=== PATIENT | female | born 1970 | race Caucasian/White ===

== ENCOUNTER → 2017-09-11 | Outpatient (CLI) | payer BC ==
[~2017-09-11] MED LIST: APRITAB; BACT800T5 PO; CARV25TA PO; CORE25TA PO; COZA50TA PO; FOLI800T PO; IBUP-232 PO; LOSA50TA PO; OXYC1TAB63 PO
== END ==
LOC: CPRE 10:23
PROVIDERS: ATTEND Obstetrics & Gynecology
DX: Z01.812 Encounter for preprocedural laboratory examination (principal)

== ENCOUNTER 2017-09-19 06:13 | Observation (INO) | payer BC ==
[~2017-09-19] VITALS: Ht 165.1 cm; Wt 78.2 kg
[~2017-09-19 06:13] MED LIST changes: -APRITAB; -BACT800T5 PO; -CORE25TA PO; -COZA50TA PO; -IBUP-232 PO; -OXYC1TAB63 PO
[2017-09-19] MEDS ORDERED: ACETAMINOPHEN 1000 MG/100 ML 100 ML IV ONE (06:42)
[2017-09-19] MEDS ORDERED: NALOXONE HCL 0.4 MG/ML AMP ONE (06:43)
[2017-09-19] MEDS ORDERED: SUGAMMADEX SODIUM 200 MG/2 ML VIAL IV PUSH ONE (06:43)
[2017-09-19] MEDS ORDERED: HYDROmorphone HCL PF 2 MG/ML VIAL ONE (06:43)
[2017-09-19] MEDS ORDERED: CHLORHEXIDINE GLUCONATE 2 % 1 PACK (2 CLOTHS) TOPICAL PRN (06:45)
[2017-09-19] MEDS ORDERED: ceFAZolin 2 GM PREMIX 50 ML IV SCH (06:45)
[2017-09-19] MEDS ORDERED: METOPROLOL TARTRATE 25 MG TAB PO PRN (06:45)
[2017-09-19] MEDS ORDERED: LACTATED RINGER'S 1000 ML IV PRN (06:45)
[2017-09-19] MEDS ORDERED: POVIDONE IODINE 5% (ANTISEPSIS KIT) 4 APPLICATIONS EACH NARE PRN (06:45)
[2017-09-19] MEDS ORDERED: SODIUM CHLORID 0.9% 500 ML IV PRN (06:45)
[2017-09-19] MEDS ORDERED: BUPIVACAINE/EPINEPHRINE 0.25% 50 ML VIAL ONE (06:51)
[2017-09-19] MEDS ORDERED: ESTROGENS CONJUGATED VAG CREA 15 APPL/30 GM TUBE ONE (06:52)
[2017-09-19] MEDS ORDERED: MICROFIBRILLAR COLLAGEN HEMOSTAT 1 GM PKT ONE (08:34)
[2017-09-19] MEDS ORDERED: SODIUM CHLORIDE 0.9% FLUSH 10 ML FLUSH IV FLUSH PRN (09:45)
[2017-09-19] MEDS ORDERED: DOCUSATE SODIUM 100 MG CAP PO PRN (09:45)
[2017-09-19] MEDS ORDERED: NALOXONE HCL 0.4 MG/ML AMP IV PUSH PRN (09:45)
[2017-09-19] MEDS ORDERED: diphenhydrAMINE HCL 50 MG/ML VIAL IV PUSH PRN (09:45)
[2017-09-19] MEDS ORDERED: HYDROmorphone HCL PCA 6 MG/30 ML IV SCH (09:45)
[2017-09-19] MEDS ORDERED: ACETAMINOPHEN 325 MG TAB PO PRN (09:45)
[2017-09-19] MEDS ORDERED: IBUPROFEN 600 MG TAB PO PRN (09:45)
[2017-09-19] MEDS ORDERED: ZOLPIDEM TARTRATE 5 MG TAB PO PRN (09:45)
[2017-09-19] MEDS ORDERED: ONDANSETRON HCL 4 MG/2 ML VIAL IV PUSH PRN (09:45)
[2017-09-19] MEDS ORDERED: MIDAZOLAM HCL 2 MG/2 ML VIAL ONE (10:10)
[2017-09-19] MEDS ORDERED: *MEPERIDINE 25 MG INJ VIAL PERIprocedural Use ONLY ONE (10:12)
[2017-09-19] MEDS: LACTATED RINGER'S 1000 ML INJ 1,000 ML IV SCH (10:49)
[2017-09-19 11:14] VITALS: BP 115/70; PULSE 67; RESP 15; TEMP 97.7; O2SAT 100
[2017-09-19] MEDS ORDERED: DO NOT ADM ANY ANTICOAGULANT DRUGS PRN (11:15)
[2017-09-19] MEDS ORDERED: PROPOFOL 200 MG/20 ML AMP IV ONE (12:00)
[2017-09-19] MEDS ORDERED: ROCURONIUM INJ 50 MG/5 ML SYRINGE IV PUSH ONE (12:00)
[2017-09-19] MEDS ORDERED: LACTATED RINGER'S 1000 ML INJ 2,000 ML IV ONE (12:00)
[2017-09-19] MEDS ORDERED: ONDANSETRON HCL 4 MG/2 ML VIAL IV ONE (12:00)
[2017-09-19] MEDS ORDERED: LIDOCAINE HCL 1% PF 5 ML SYRINGE OTHER ONE (12:00)
[2017-09-19] MEDS ORDERED: KETOROLAC TROMETHAMINE 30 MG/ML (IVP) VIAL IV PUSH ONE (12:00)
[2017-09-19] MEDS ORDERED: DEXAMETHASONE SOD PHOS 4 MG/ML VIAL IV ONE (12:00)
[2017-09-19] MEDS ORDERED: PHENYLEPH/NS 1000 MCG/10 ML SYR IV ONE (12:00)
--- NOTE | 2017-09-19 13:26 | MP ---
cc: ANETTE NANCE DATE OF SURGERY 09/19/2017 PREOPERATIVE DIAGNOSIS Cervical intraepithelial neoplasia 2/3 on endocervical curettage. POSTOPERATIVE DIAGNOSIS Cervical intraepithelial neoplasia 2/3 on endocervical curettage. PROCEDURE Examination under anesthesia, laparoscopic-assisted vaginal hysterectomy, bilateral salpingectomy, cystoscopy. SURGEON Dr. Nance. ANESTHESIA General endotracheal anesthesia. FLUIDS 1500 cc crystalloids. ESTIMATED BLOOD LOSS 50 cc. URINE OUTPUT 350 cc clear yellow at the end of the procedure. FINDINGS Uterus was approximately 8-10 weeks in size. Ovaries appeared normal. Cervix was flush with vagina. DETAILS OF PROCEDURE The patient was taken to the operating room where general anesthesia was found to be adequate. She was then prepped and draped in the normal sterile fashion in the dorsal lithotomy position. A Mirza catheter was inserted into the urinary bladder using sterile technique. A speculum was placed in the vagina. A single-tooth tenaculum was applied to the anterior lip of the cervix. The cervix was gently dilated with Brien dilators sizes 9-13. A small VCare uterine manipulator was placed through the cervix. A suture was placed on the anterior lip of the cervix. The tenaculum was removed. The balloon was inflated. The cups were positioned vaginally. The speculum was removed. The gloves were changed and attention was turned to the abdominal portion of the procedure. A 5 mm incision was made just above the umbilicus and a 5 mm trocar and camera were inserted into the abdominal cavity under direct visualization. The abdomen was insufflated with approximately 3.5 liters of CO2 gas. Two additional 5 mm trocars were placed in the right and left lower quadrants under direct visualization. The Harmonic scalpel was then used to transect the round ligaments bilaterally. The bladder was noted to be adherent to the anterior surface of the uterus from her previous section. The bladder was gently dissected off of the anterior surface of the uterus and cervix using the Harmonic scalpel. Hemostasis was assured. The ovaries were identified and noted to be normal. The salpingectomy was performed. The tubes were from the broad ligaments using the Harmonic scalpel. The remaining broad ligaments and uterine arteries were then transected bilaterally with the Harmonic scalpel. The anterior vagina was entered using the Harmonic scalpel and the VCare as a guide. The incision was extended circumferentially around the cervix through the vagina. Hemostasis was assured. The specimen was then delivered vaginally. The uterus, cervix and bilateral fallopian tubes were sent to pathology. The gas was allowed to escape from the abdomen. The vaginal cuff was closed vaginally with a running suture of 0 Vicryl. Hemostasis was assured. Cystoscopy was then performed. The Mirza catheter was used to instill approximately 300 cc of saline into the bladder. The Mirza catheter was removed. Cystoscopy was performed and urine was noted to be effluxing from both of the ureteral meatuses. The cystoscope was removed. The Mirza catheter was replaced. The gloves were changed and trocars were removed from the abdominal cavity. The skin incisions were closed with 4-0 Monocryl and covered with Steri-Strips. The sponge, lap, needle and instrument counts were correct. The patient was awakened from anesthesia and transferred to the recovery room in stable condition. Pathology was uterus, cervix and bilateral fallopian tubes. MD JUSTIN Holliday/CODIE /9:58 AM /1:08 PM
[2017-09-19 15:15] VITALS: BP 119/71; PULSE 71; RESP 15; TEMP 98.1; O2SAT 98
[2017-09-19] MEDS: PCA - TOTAL MG DILAUDID DELIVERED PER SHIFT OTHER SCH ×2 (17:02→22:00)
[2017-09-19 20:00] VITALS: BP 119/73; PULSE 73; RESP 18; TEMP 97.4; O2SAT 97
[2017-09-19] MEDS: CARVEDILOL 12.5 MG TAB PO SCH (20:57)
[2017-09-19] MEDS ORDERED: SODIUM CHLORIDE 0.9% FLUSH 10 ML FLUSH IV FLUSH SCH (21:00)
[2017-09-20] VITALS: BP 120/69; PULSE 77; RESP 18; TEMP 97.8; O2SAT 98
[2017-09-20] MEDS: LACTATED RINGER'S 1000 ML INJ 1,000 ML IV SCH (00:05)
[2017-09-20 04:00] VITALS: BP 114/71; PULSE 66; RESP 18; TEMP 97.9; O2SAT 97
[2017-09-20 05:53] LABS: AUTOMATED NEUTROPHIL # 7.8 TH/MM3 (1.8-7.7); BASOPHIL % 0.4 % (0.0-2.0); HEMATOCRIT 32.4 % (35.0-46.0); LYMPH % 14.2 % (9.0-44.0); LYMPHOCYTE # 1.4 TH/MM3 (1.0-4.8); MEAN CELL VOLUME 87.9 FL (80.0-100.0); MEAN CORPUSCULAR HEMOGLOBIN 29.8 PG (27.0-34.0); MEAN CORPUSCULAR HGB CONC 33.9 % (32.0-36.0); MEAN PLATELET VOLUME 8.9 FL (7.0-11.0); MONO % 6.7 % (0.0-8.0); MONOCYTE # 0.7 TH/MM3 (0-0.9); NEUT % 78.7 % (16.0-70.0); PLATELET COUNT 176 TH/MM3 (150-450); RED BLOOD COUNT 3.68 MIL/MM3 (4.00-5.30); RED CELL DISTRIBUTION WIDTH 12.9 % (11.6-17.2); WHITE BLOOD COUNT 9.9 TH/MM3 (4.0-11.0)
[2017-09-20 06:10] LABS: CREATININE 0.62 MG/DL (0.50-1.00)
[2017-09-20] MEDS: PCA - TOTAL MG DILAUDID DELIVERED PER SHIFT OTHER SCH (06:15)
[2017-09-20] MEDS ORDERED: oxyCODONE/ACETAMINOPHEN 5 MG/325 MG TAB PO PRN (07:00)
[2017-09-20] MEDS ORDERED: oxyCODONE/ACETAMINOPHEN 10 MG/325 MG TAB PO PRN (07:00)
--- NOTE | 2017-09-20 07:59 | HHI.PR ---
Subjective Remarks Doing well, pain is well controlled, eating well. Objective Vital Signs Vital Signs Date Time Temp Pulse Resp B/P (MAP) Pulse Ox O2 Delivery O2 Flow Rate FiO2 09/20/17 06:15 17 09/20/17 04:00 97.9 66 18 114/71 (85) 97 09/20/17 00:00 97.8 77 18 120/69 (86) 98 09/19/17 22:00 15 09/19/17 20:00 97.4 73 18 119/73 (88) 97 09/19/17 17:02 18 09/19/17 15:15 98.1 71 15 119/71 (87) 98 09/19/17 11:14 97.7 67 15 115/70 (85) 100 09/19/17 10:48 16 09/19/17 10:35 97.7 68 20 110/63 (79) 90 Room Air 09/19/17 10:15 68 20 100/58 (72) 90 09/19/17 10:04 97.7 74 20 112/96 (101) 96 Nasal Cannula 2 I/O 09/19/17 09/19/17 09/19/17 09/20/17 09/20/17 09/20/17 07:00 15:00 23:00 07:00 15:00 23:00 Intake Total 1500 ml 824 ml Output Total 400 ml 450 ml 1500 ml Balance 1100 ml 374 ml -1500 ml Intake IV Total 1500 ml 824 ml Output Urine Total 350 ml 450 ml 1500 ml Estimated Blood Loss 50 ml Result Diagram: 09/20/17 0506 09/20/17 0506 Objective Remarks Chest is clear, regular rate and rhythm. Abdomen is soft and non-distended. Incision is clean and dry. Ext no CCE. A/P Assessment and Plan Post Op Day 1 s/p LAVH for GAEL 2/3 Doing well Home today and return to office in two weeks. Cari Nance MD Sep 20, 2017 07:59
[2017-09-20 08:00] VITALS: BP 103/65; PULSE 65; RESP 14; TEMP 97.7; O2SAT 98
[2017-09-20] MEDS ORDERED: OXYC1TAB63 PO (08:03)
[2017-09-20] MEDS ORDERED: IBUP-232 PO (08:03)
--- NOTE | 2017-09-20 08:03 | HHI.DCPOC ---
Discharge Care Plan Your Health Problems Are: Pelvic pain Report Symptoms to Your Doctor -Temperature above 100.5 degrees -Redness, of incision or excessive or foul smelling drainage -Unusual pain or calf pain -Increased vaginal bleeding -Painful or difficulty urinating -Feelings of extreme sadness or anxiety after 2 weeks Goals to Promote Your Health * To prevent worsening of your condition and complications * To maintain your health at the optimal level Directions to Meet Your Goals Take your medications as prescribed Follow your dietary instruction Follow activity as directed Ensure plenty of rest for recovery Drink fluids for hydration Keep your appointments as scheduled Take your immunizations and boosters as scheduled If your symptoms worsen call your PCP, if no PCP go to Urgent Care Center or Emergency Room Smoking is Dangerous to Your Health. Avoid second hand smoke Call the 24-hour crisis hotline for domestic abuse at Cari Nance MD Sep 20, 2017 08:03
[2017-09-20] MEDS: CARVEDILOL 12.5 MG TAB PO SCH (08:46)
[2017-09-20] MEDS ORDERED: LOSARTAN 50 MG TAB PO SCH ×2 (09:00→21:00)
== END 2017-09-20 09:42 | disposition home or self-care (01) ==
LOC: HSDC 06:13 → HSDI 09:49 → H1EA 10:53
PROVIDERS: ADMIT Obstetrics & Gynecology; ATTEND Obstetrics & Gynecology
DX: D06.0 Carcinoma in situ of endocervix (principal); I49.9 Cardiac arrhythmia, unspecified
CPT/HCPCS: 00840; 58552; 82565; 85025; 86850; 86900; 86901; 88309; 94150; 96374; 96375; G0378; J0131; J0690; J1100; J1170; J1885; J2175; J2250; J2310; J2370; J2405; J3010; J7120; 88307

== ENCOUNTER 2017-10-08 06:52 | Emergency (ER) | payer BC ==
[~2017-10-08] VITALS: Ht 165.1 cm; Wt 75.0 kg
[~2017-10-08 06:52] MED LIST changes: +IBUP-232 PO; +OXYC1TAB63 PO
[2017-10-08 07:02] VITALS: BP 139/90; PULSE 80; RESP 12; TEMP 98.7; O2SAT 99
--- NOTE | 2017-10-08 07:17 | PD ---
HPI Chief Complaint: Bleeding Time Seen by Provider: 07:04 Travel History International Travel<30 days: No Contact w/Intl Traveler<30days: No Traveled to known affect area: No History of Present Illness HPI 47yo F with PMH of cardiomyopathy and cervical cancer s/p hysterectomy Sep 19 presents to the ED with c/o vaginal bleeding today. Pt had laparoscopic hysterectomy [address] Nance and was doing well post op. Had some spotting yesterday but woke up at 6am with gush of bright red vaginal bleeding. Had one clot. Said she had bleeding through 2 pads. Denies any fever, chest pain, sob, vomiting. Pt had nausea but resolved with zofran given by [facility]. Had some abdominal cramping. Pt called Dr. Borges (who works in the same group as Dr. Nance) this morning and he advised her to come to the ED. PFSH Past Medical History Cancer: Yes (cervical ) Cardiovascular Problems: Yes (cardiomyopathy ) Diabetes: No Endocrine: No Genitourinary: No Hepatitis: No Hiatal Hernia: No Immune Disorder: No Musculoskeletal: No Neurologic: No Psychiatric: No Respiratory: No Thyroid Disease: No ?: Not Past Surgical History Abdominal Surgery: No AICD: No Body Medical Devices: tooth implant lower Section: Yes Ear Surgery: No Endocrine Surgery: No Eye Surgery: No Genitourinary Surgery: No Gynecologic Surgery: Yes Hysterectomy: Yes (september 19 2017 ) Joint Replacement: No Oral Surgery: No Pacemaker: No Thoracic Surgery: No Other Surgery: Yes (C/S 2003, fatty tumor on shoulder removed ) Social History Alcohol Use: No Tobacco Use: No Substance Use: No Allergies-Medications (Allergen,Severity, Reaction): Coded Allergies: lisinopril (Verified Allergy, Unknown, 10/08/17) Reported Meds & Prescriptions Reported Meds & Active Scripts Active Reported Losartan (Losartan Potassium) 50 Mg Tab 50 Mg PO DAILY Carvedilol 25 Mg Tab 25 Mg PO BID Review of Systems Except as stated in HPI: all other systems reviewed are Neg Physical Exam Narrative GENERAL: 47yo F not in distress. SKIN: Focused skin assessment warm/dry. HEAD: Atraumatic. Normocephalic. EYES: Pupils equal and round. No scleral icterus. No injection or drainage. ENT: No nasal bleeding or discharge. Mucous membranes pink and moist. NECK: Trachea midline. No JVD. CARDIOVASCULAR: Regular rate and rhythm. No murmur appreciated. RESPIRATORY: No accessory muscle use. Clear to auscultation. Breath sounds equal bilaterally. GASTROINTESTINAL: Abdomen soft, non-tender, nondistended. No rebound tenderness or guarding. Surgical scars well healed with no erythema or discharge. PELVIC: +Small amount of blood in vaginal vault. Sutures on vaginal cuff in place. MUSCULOSKELETAL: No obvious deformities. No clubbing. No cyanosis. No edema. NEUROLOGICAL: Awake and alert. No obvious cranial nerve deficits. Motor grossly within normal limits. Normal speech. PSYCHIATRIC: Appropriate mood and affect; insight and judgment normal. Data Data Last Documented VS Vital Signs Date Time Temp Pulse Resp B/P (MAP) Pulse Ox O2 Delivery O2 Flow Rate FiO2 10/08/17 07:02 98.7 80 12 139/90 (106) 99 Room Air Orders Orders Complete Blood Count With Diff (10/08/17 07:10) Basic Metabolic Panel (Bmp) (10/08/17 07:10) Prothrombin Time / Inr (Pt) (10/08/17 07:10) Act Partial Throm Time (Ptt) (10/08/17 07:10) Type And Screen (10/08/17 07:10) Labs Laboratory Tests Test 10/08/17 07:30 White Blood Count 6.8 TH/MM3 Red Blood Count 4.02 MIL/MM3 Hemoglobin 11.9 GM/DL Hematocrit 34.8 % Mean Corpuscular Volume 86.5 FL Mean Corpuscular Hemoglobin 29.6 PG Mean Corpuscular Hemoglobin Concent 34.2 % Red Cell Distribution Width 12.6 % Platelet Count 216 TH/MM3 Mean Platelet Volume 8.6 FL Neutrophils (%) (Auto) 48.0 % Lymphocytes (%) (Auto) 31.8 % Monocytes (%) (Auto) 7.7 % Eosinophils (%) (Auto) 10.1 % Basophils (%) (Auto) 2.4 % Neutrophils # (Auto) 3.3 TH/MM3 Lymphocytes # (Auto) 2.2 TH/MM3 Monocytes # (Auto) 0.5 TH/MM3 Eosinophils # (Auto) 0.7 TH/MM3 Basophils # (Auto) 0.2 TH/MM3 CBC Comment DIFF FINAL Differential Comment Prothrombin Time 10.4 SEC Prothromb Time International Ratio 1.0 RATIO Activated Partial Thromboplast Time 25.9 SEC Blood Urea Nitrogen 11 MG/DL Creatinine 0.70 MG/DL Random Glucose 91 MG/DL Calcium Level 8.4 MG/DL Sodium Level 142 MEQ/L Potassium Level 3.8 MEQ/L Chloride Level 111 MEQ/L Carbon Dioxide Level 24.8 MEQ/L Anion Gap 6 MEQ/L Estimat Glomerular Filtration Rate 90 ML/MIN MDM Medical Decision Making Medical Screen Exam Complete: Yes Emergency Medical Condition: Yes Differential Diagnosis Post op vaginal bleeding Narrative Course 47yo F with vaginal bleeding today. She is post op day #19 for laparoscopic vaginal hysterectomy. Pt has no abdominal tenderness on exam. Vital signs are stable. Pelvic exam showed very small amount of blood and intact sutures. Labs reviewed, no leukocytosis. H/H 11.9/34.8. Normal platelet. BMP unremarkable. Discussed case with Dr. Borges who came to the ED to evaluate the patient. He said that pt can be discharge and he will let Dr. Nance know and she will contact her. Pt reevaluated at bedside and said her bleeding has improved since passing a blood clot in the bathroom here. Pt is well appearing and return precautions given. Diagnosis Primary Impression: Vaginal bleeding Patient Instructions: General Instructions Departure Forms: Tests/Procedures Additional Instructions: Please follow up with Dr. Nance as an outpatient. Return to the ED if symptoms worsen. Med/Other Pt SpecificInfo: No Change to Meds Disposition: 01 DISCHARGE HOME Condition: Stable Rochelle Mauro DO Oct 08, 2017 07:17
[2017-10-08 07:48] LABS: AUTOMATED NEUTROPHIL # 3.3 TH/MM3 (1.8-7.7); BASOPHIL # 0.2 TH/MM3 (0-0.2); BASOPHIL % 2.4 % (0.0-2.0); EOSINOPHIL # 0.7 TH/MM3 (0-0.4); EOSINOPHIL % 10.1 % (0.0-4.0); HEMATOCRIT 34.8 % (35.0-46.0); HEMOGLOBIN 11.9 GM/DL (11.6-15.3); LYMPH % 31.8 % (9.0-44.0); LYMPHOCYTE # 2.2 TH/MM3 (1.0-4.8); MEAN CELL VOLUME 86.5 FL (80.0-100.0); MEAN CORPUSCULAR HEMOGLOBIN 29.6 PG (27.0-34.0); MEAN CORPUSCULAR HGB CONC 34.2 % (32.0-36.0); MEAN PLATELET VOLUME 8.6 FL (7.0-11.0); MONO % 7.7 % (0.0-8.0); MONOCYTE # 0.5 TH/MM3 (0-0.9); PLATELET COUNT 216 TH/MM3 (150-450); RED BLOOD COUNT 4.02 MIL/MM3 (4.00-5.30); RED CELL DISTRIBUTION WIDTH 12.6 % (11.6-17.2); WHITE BLOOD COUNT 6.8 TH/MM3 (4.0-11.0)
[2017-10-08 07:58] LABS: PROTHROMBIN TIME - PATIENT 10.4 SEC (9.8-11.6)
[2017-10-08 08:25] LABS: BICARBONATE 24.8 MEQ/L (21.0-32.0); CALCIUM 8.4 MG/DL (8.5-10.1); CREATININE 0.7 MG/DL (0.50-1.00)
--- NOTE | 2017-10-08 09:02 | PD.CONS ---
History of Present Illness Service [employer] CHEMIST Consult Requested By ER physician Reason for Consult Vaginal bleeding status post hysterectomy Primary Care Physician Filomena Payton MD Diagnoses: History of Present Illness Patient is a 47-year-old female here with her who is status post LAVH, BS, and cystoscopy on 09/19/2017 for GAEL 3, she had an uncomplicated postoperative course until this morning, I was called by the director of parks and recreation roll edge machine operator and spoke to the patient about heavy bleeding, she woke up and said she was "hemorrhaging", she felt dizzy then, upon evaluation by the ER physician patient had no further bleeding and cuff appeared intact. She states she feels well now, some abdominal cramping but no pain, has been tolerating a diet, no nausea or vomiting, regular bowel movements, voiding without difficulty. She is not having any more bleeding. Review of Systems ROS Limitations: Other (negative except for that in history of present illness) Past Family Social History Allergies: Coded Allergies: lisinopril (Verified Allergy, Unknown, 10/08/17) Past Medical History 1. Hereditary cardiomyopathy Past Surgical History 1. LEEP 2. 2006 section 3. 09/22/2017: Arthroscopic assisted vaginal hysterectomy, bilateral salpingectomy, cystoscopy for GAEL-3 Reported Medications Carvedilol and losartan Family History Paternal grandfather: CVA Mother: CHF Father: Prostate cancer and lung cancer Social History Denies tobacco or drug use, occasional alcohol use. . OB history: - 1 TERRITORY MANAGER history: History of abnormal Paps yes, heterosexual, history of sexually transmitted infections yes. Physical Exam Vital Signs Vital Signs Date Time Temp Pulse Resp B/P (MAP) Pulse Ox O2 Delivery O2 Flow Rate FiO2 10/08/17 07:02 98.7 80 12 139/90 (106) 99 Room Air Physical Exam GENERAL: This is a well-nourished, well-developed patient, in no apparent distress. SKIN: No rashes, ecchymoses or lesions. Cool and dry. HEAD: Atraumatic. Normocephalic. No temporal or scalp tenderness. EYES: Pupils equal round and reactive. Extraocular motions intact. No scleral icterus. No injection or drainage. ENT: Nose without bleeding, purulent drainage or septal hematoma. Throat without erythema, tonsillar hypertrophy or exudate. Uvula midline. Airway patent. NECK: Trachea midline. No JVD or lymphadenopathy. Supple, nontender, no meningeal signs. CARDIOVASCULAR: Regular rate and rhythm without murmurs, gallops, or rubs. RESPIRATORY: Clear to auscultation. Breath sounds equal bilaterally. No wheezes , rales, or rhonchi. GASTROINTESTINAL: Abdomen soft, non-tender, nondistended. No hepato-splenomegaly , or palpable masses. No guarding. : deferred MUSCULOSKELETAL: Extremities without clubbing, cyanosis, or edema. No joint tenderness, effusion, or edema noted. No calf tenderness. Negative Homans sign bilaterally. NEUROLOGICAL: Awake and alert. Cranial nerves II through XII intact. Motor and sensory grossly within normal limits. Five out of 5 muscle strength in all muscle groups. Normal speech. Laboratory Laboratory Tests Test 10/08/17 07:30 White Blood Count 6.8 Red Blood Count 4.02 Hemoglobin 11.9 Hematocrit 34.8 Mean Corpuscular Volume 86.5 Mean Corpuscular Hemoglobin 29.6 Mean Corpuscular Hemoglobin Concent 34.2 Red Cell Distribution Width 12.6 Platelet Count 216 Mean Platelet Volume 8.6 Neutrophils (%) (Auto) 48.0 Lymphocytes (%) (Auto) 31.8 Monocytes (%) (Auto) 7.7 Eosinophils (%) (Auto) 10.1 Basophils (%) (Auto) 2.4 Neutrophils # (Auto) 3.3 Lymphocytes # (Auto) 2.2 Monocytes # (Auto) 0.5 Eosinophils # (Auto) 0.7 Basophils # (Auto) 0.2 CBC Comment DIFF FINAL Differential Comment Prothrombin Time 10.4 Prothromb Time International Ratio 1.0 Activated Partial Thromboplast Time 25.9 Blood Urea Nitrogen 11 Creatinine 0.70 Random Glucose 91 Calcium Level 8.4 Sodium Level 142 Potassium Level 3.8 Chloride Level 111 Carbon Dioxide Level 24.8 Anion Gap 6 Estimat Glomerular Filtration Rate 90 Result Diagram: 10/08/1730 10/08/17 07 Assessment and Plan Assessment and Plan 1. Vaginal bleeding status post hysterectomy: could be related to granulation tissue of the cuff versus expelled hematoma, patient asymptomatic, hemoglobin stable and slightly up from postop day 1 hemoglobin, normal white count, provided patient reassurance, however if has recurrences of bleeding likely will need evaluation under anesthesia and possible pelvic ultrasound versus CT. Patient has follow-up in the office in the next 2-3 weeks. Segundo Perez MD Oct 08, 2017 09:02
== END 2017-10-08 09:32 | disposition home or self-care (01) ==
LOC: NEPE 06:52
DX: N99.820 Postprocedural hemorrhage of a genitourinary system organ or structure following a genitourinary system procedure (principal); I42.9 Cardiomyopathy, unspecified; Z85.41 Personal history of malignant neoplasm of cervix uteri; Z90.710 Acquired absence of both cervix and uterus
CPT/HCPCS: 80048; 85025; 85610; 85730; 86850; 86900; 86901; 99283